=== PATIENT | male | born 1940 | race Caucasian/White ===

== ENCOUNTER 2018-11-02 10:29 | Outpatient (CLI) | payer MEDICARE, OTHER ==
--- NOTE | 2018-11-02 11:54 | MRI ---
MRI LUMBAR SPINE: Date: 11/02/2018 COMPARISON: None. HISTORY: Low back pain and right-sided hip pain, radiculopathy, spinal stenosis. TECHNIQUE: Multiplanar multisequence MR imaging of the lumbar spine obtained without contrast. FINDINGS: The sagittal STIR imaging demonstrates no focal area of osseous marrow edema. On the basis of 5 lumbar type vertebral bodies, the conus medullaris terminates at the T12-L1 level. T12-L1: There is disc space narrowing and disc desiccation with mild bilateral facet hypertrophy. No significant central canal or neural foraminal stenosis. L1-2: There is disc space narrowing and disc desiccation with mild bilateral facet hypertrophy. No si gnificant central canal or neural foraminal stenosis. L2-3: There is disc space narrowing and disc desiccation with mild disc bulge. Mild bilateral facet h ypertrophy. There is anterior osteophyte formation. No significant central canal or neural foraminal stenosis. L3-4: There is disc space narrowing and disc desiccation with minimal disc bulge and anterior osteoph yte formation. Mild bilateral facet hypertrophy. No significant central canal or neural foraminal stenosis. L4-5: There is disc space narrowing and disc desiccation. There is bilateral facet hypertrophy. There is a small foraminal disc protrusion on the left abutting the exiting L4 nerve root. Mild bilateral neural foraminal stenosis. No significant central canal stenosis. L5-S1: Disc space narrowing disc desiccation and vacuum disc formation. There is no significant centr al canal or neural foraminal stenosis. Review of the retroperitoneal structures demonstrates lobulated T2 hyperintensity within the renal hi la bilaterally suggesting extrarenal pelves and/or parapelvic cysts. IMPRESSION: Multilevel degenerative change within the lumbar spine as detailed above. Transcribed Date/Time: 11/02/2018 11:58 AM
== END 2018-11-02 10:30 | disposition home or self-care (01) ==
LOC: TBSIIMAG 10:29
PROVIDERS: ATTEND Orthopaedic Surgery
DX: M48.061 Spinal stenosis, lumbar region without neurogenic claudication (principal); M47.816 Spondylosis without myelopathy or radiculopathy, lumbar region
CPT/HCPCS: 72148

== ENCOUNTER 2019-03-22 11:50 | Outpatient (CLI) | payer MEDICARE ==
--- NOTE | 2019-03-22 13:13 | CT ---
CT pulmonary lung scan without IV contrast INDICATION: Lung cancer screening protocol; 60 year plus smoking history; quit 2 years agopersonal hi story of smoking COMPARISON: None FINDINGS: LUNGS: Nodules\mass: No suspicious nodule demonstrated. Emphysema: Mild centrilobular emphysema Additional findings: There are coronary artery and thoracic aortic calcifications Mediastinum: No lymphadenopathy. Upper abdomen: There is prominence of the superior and mid left renal pelvicalyceal system which may reflect a UPJ obstruction or multiple peripelvic cyst. This is incompletely characterized. There is a calcified granuloma within the spleen. Osseous structures: No acute abnormality.. IMPRESSION: Lung-RADS Category 1: Negative- Continue annual screening with LDCT in 12 months. Category S: Coronary artery and thoracic aortic calcifications, centrilobular emphysema. Prominence o f the left renal collecting system may reflect a chronic UPJ obstruction or multiple peripelvic cysts. Follow-up renal ultrasound is recommended. Category C: Not applicable.
== END 2019-03-22 11:51 | disposition home or self-care (01) ==
LOC: CT 11:50
PROVIDERS: ATTEND Family Medicine
DX: Z87.891 Personal history of nicotine dependence (principal); I25.10 Atherosclerotic heart disease of native coronary artery without angina pectoris; I70.0 Atherosclerosis of aorta; J43.9 Emphysema, unspecified
CPT/HCPCS: G0297

== ENCOUNTER 2019-07-23 17:40 | Inpatient (IN) | payer MEDICARE ==
[2019-07-23 18:55] LABS: CKMB 3.4 ng/mL (0-6.6)
[2019-07-23] MEDS ORDERED: Senokot S 8.6-50 MG TAB PO PRN (20:20)
[2019-07-23] MEDS ORDERED: Acetaminophen 325 MG TAB PO PRN (20:20)
[2019-07-23 20:37] VITALS: BMI 22.5
[2019-07-23] MEDS ORDERED: Sodium Chloride 0.9% 1,000 ML IV SCH (21:00)
[2019-07-23 21:36] LABS: Troponin I 0.835 ng/mL (< 0.028)
[2019-07-23] MEDS: Enoxaparin Sodium 80 MG/0.8 ML SYRINGE SC SCH (21:49)
[2019-07-23] MEDS: Famotidine 20 MG TAB PO SCH (21:50)
--- NOTE | 2019-07-23 22:25 | HP ---
CHIEF COMPLAINT: Weakness. HISTORY OF PRESENT ILLNESS: Mr. Crystal is a very pleasant 78-year-old man, who was transferred to the emergency room at [facility] from [facility] in [place]. He was evaluated there for weakness, which he reports began last night. He reports that he got up to use the restroom, felt overall very weak and fell multiple times on the way to and from the bathroom. He denies any chest pain, any dyspnea, nausea, vomiting, abdominal pain, or any pain. When this occurred, denies hitting his head when he fell. Reports that basically his legs buckled and he was having a hard time. He is able to get up but really had to pull himself up with his upper body. He reports that his works as a nurse and works overnight when she got home this morning. She suggested he go to the emergency room and get checked out. While there, he was evaluated and his initial troponin was 0.47 and then repeat troponin was higher at 0.64. He reports that he sees Dr. Zambrano as a personnel adviser about once a year and he has not seen her in, he thinks about 10 months. He denies history of any chest pain, cardiac workup, any surgeries. Does have a heart murmur and is being treated for hypertension. Denies any heart stents, history of GA or stroke. He has a history of smoking and does currently vape. EKG in the emergency room shows normal sinus rhythm, beats per minute 64, complete right bundle branch block, ST depression in lateral leads. T-waves are normal. The patient was given aspirin and Lovenox in [place] and then sent here for evaluation and admission. He will be admitted to telemetry for further workup. REVIEW OF SYSTEMS: The patient reports weakness primarily in his legs. He denies any other symptoms. Denies any chest pain, shortness of breath, abdominal pain, nausea, vomiting, or diarrhea. All systems reviewed with him and negative unless mentioned above or in the HPI. PAST MEDICAL HISTORY: Pertinent for heart murmur diagnosed in 2016, hypertension treated with medication, history of dementia. FAMILY HISTORY: His mom also has dementia and he is on medications for that. SURGICAL HISTORY: Tonsils and appendix have been removed. KNOWN ALLERGIES: None. CURRENT MEDICATIONS: 1. Finasteride 5 mg p.o. once a day. 2. Lisinopril 10 mg p.o. once a day. 3. Metoprolol 100 mg p.o. once a day. 4. Flomax 0.4 mg p.o. once a day. 5. Xanax 0.5 mg p.r.n. PHYSICAL EXAMINATION: ABDOMEN: Nontender. Bowel sounds are heard. BACK: Normal range of motion. No tenderness. MUSCULOSKELETAL: Upper extremity, normal range of motion. Motor strength is normal. Radial pulses are normal. Lower extremity, normal range of motion. Motor strength is normal. Pedal pulses are normal. NEUROLOGIC: The patient is oriented to person, place, and time. Speech is normal. SKIN: Warm, dry, and normal in color. LABORATORY DATA: We will trend troponins, order echocardiogram for in the morning, ask Dr. May to consult. Aspirin was given today, we will continue this daily. Lovenox 1 mg/kg b.i.d. Fasting lipids, TSH. ASSESSMENT: 1. History of hypertension. We will restart home medications once reconciled. 2. Ask PT/OT to help us evaluate. 3. Syncope, see please #1. 4. Gastrointestinal prophylaxis started. Lovenox for deep venous thrombosis prophylaxis. 5. Labs will be repeated in the morning. 6. Case discussed with Dr. Sun, who agrees with plan. 7. Hospital course dependent on clinical findings. Job ID: [id number]
[2019-07-24 01:10] LABS: Critical Call Chem Troponin I RESULT DECREASING; Troponin I 0.763 ng/mL (< 0.028)
[2019-07-24 04:47] LABS: #Eosinphils 0.7 thou/uL (0.0-0.7); #Lymphocytes 1.7 thou/uL (1.20-3.40); #Monocytes 0.4 thou/uL (0.11-0.59); #Neutrophils 5.7 thou/uL (1.40-6.50); %Basophils 0.5 % (0.0-1.0); %Eosinophils 7.7 % (0.0-10.0); %Lymphocytes 20.4 % (21.0-51.0); %Monocytes 5.1 % (0.0-10.0); %Neutrophils 66.3 % (42.0-75.0); Hemoglobin 12.2 g/dL (14.0-18.0); Mean Corpuscular HGB CONC 32.9 g/dL (32.0-36.0); Mean Corpuscular Volume 91.1 fL (78.0-98.0); Mean Platelet Volume 7.7 fL (7.4-10.4); Platelet Count 172 thou/uL (130-400); RBC Distribution Width 12.2 % (11.5-14.5); Red Blood Cell (RBC) Count 4.08 mill/uL (4.70-6.10); White Blood Cell (WBC) Count 8.5 thou/uL (4.8-10.8)
[2019-07-24 05:06] LABS: ALT (SGPT) 10 U/L (8-55); AST (SGOT) 19 U/L (5-34); Albumin 3.3 g/dL (3.4-4.8); Alkaline Phosphatase 66 U/L (40-110); Anion Gap 6 mmol/L (10-20); BUN (Urea Nitrogen) 12 mg/dL (8.4-25.7); Calc. Creatinine Clearance 80 mL/min (70-130); Calcium 8.2 mg/dL (7.8-10.44); Carbon Dioxide 28 mmol/L (23-31); Chloride 109 mmol/L (98-107); Estimated GFR-MDRD Greater than 90; Globulin 2.2 g/dL (2.4-3.5); Glucose 107 mg/dL (83-110); Potassium 3.1 mmol/L (3.5-5.1); Protein, Total 5.5 g/dL (5.8-8.1); Sodium 140 mmol/L (136-145)
[2019-07-24 07:08] LABS: Triglycerides 44 mg/dL (Less than 150)
[2019-07-24 07:13] LABS: Cardiac Risk 2.6 (Less than 4.5); Cholesterol 107 mg/dl (< 200 Desired); HDL Cholesterol 41 mg/dL (>60 Neg Risk); LDL Cholesterol, Calculated 57 mg/dL
[2019-07-24] MEDS: Aspirin 325 mg Enteric Coated Tablet PO SCH (10:13)
[2019-07-24] MEDS: Famotidine 20 MG TAB PO SCH ×2 (10:13→21:40)
[2019-07-24] MEDS: Enoxaparin Sodium 80 MG/0.8 ML SYRINGE SC SCH (10:14)
[2019-07-24] MEDS ORDERED: Ubidecarenone 50 MG CAP PO SCH (12:15)
--- NOTE | 2019-07-24 13:06 | PDOC.HOSPP ---
- Subjective Encounter Date: 07/24/19 Encounter Time: 10:40 Subjective: no sob or chest pain got his echo done now - Objective Vital Signs & Weight: Vital Signs (12 hours) Temp Pulse Pulse Pulse Resp BP BP 07/24/19 11:09 98.7 F 76 17 07/24/19 09:25 72 75 171/77 H 176/73 H 07/24/19 07:44 97.9 F 74 18 07/24/19 04:00 98.2 F 72 16 BP Pulse Ox 07/24/19 11:09 172/79 H 95 07/24/19 09:25 07/24/19 07:44 146/68 H 97 07/24/19 04:00 151/66 H 95 Weight Weight 156 lb 14.4 oz I&O: 07/23/19 07/24/19 07/25/19 06:59 06:59 06:59 Intake Total 690 Balance 690 Result Diagrams: 07/24/19 04:26 07/24/19 04:26 Hospitalist ROS - Medication Medications: Active Medications Generic Name Dose Route Start Last Admin Trade Name Sergey PRN Reason Stop Dose Admin Aspirin 325 mg 07/24/19 09:00 07/24/19 10:13 Ecotrin PO 325 mg DAILY PEDRO Administration Coenzyme Q10 200 mg 07/24/19 12:15 07/24/19 12:26 Coenzyme Q10 PO 07/24/19 14:15 200 mg NOW PEDRO Administration Enoxaparin Sodium 70 mg 07/23/19 21:00 07/24/19 10:14 Lovenox SC 70 mg 0900,2100 PEDRO Administration Famotidine 20 mg 07/23/19 21:00 07/24/19 10:13 Pepcid PO 20 mg BID PEDRO Administration Sodium Chloride 1,000 mls @ 50 mls/hr 07/23/19 21:00 07/23/19 21:49 Normal Saline 0.9% IV 07/24/19 16:59 1,000 mls .Q20H PEDRO Administration - Exam General Appearance: awake alert Eye: PERRL, anicteric sclera ENT: no oropharyngeal lesions, moist mucosa Neck: supple, no JVD Heart: RRR, murmur present Respiratory: no wheezes, no rales Gastrointestinal: soft, non-tender, non-distended, normal bowel sounds Extremities: no cyanosis, no edema Neurological: cranial nerve grossly intact, no focal deficits Hosp A/P (1) Generalized weakness Code(s): R53.1 - WEAKNESS Status: Acute (2) Falls Code(s): W19.XXXA - UNSPECIFIED FALL, INITIAL ENCOUNTER Status: Acute (3) Syncope Code(s): R55 - SYNCOPE AND COLLAPSE Status: Acute (4) Aortic stenosis Code(s): I35.0 - NONRHEUMATIC AORTIC (VALVE) STENOSIS Status: Chronic Qualifiers: Cardiac valve disease etiology: nonrheumatic Qualified Code(s): I35.0 - Nonrheumatic aortic (valve) stenosis (5) HTN (hypertension) Code(s): I10 - ESSENTIAL (PRIMARY) HYPERTENSION Status: Chronic Qualifiers: Hypertension type: essential hypertension Qualified Code(s): I10 - Essential (primary) hypertension (6) Dementia Code(s): F03.90 - UNSPECIFIED DEMENTIA WITHOUT BEHAVIORAL DISTURBANCE Status: Chronic Qualifiers: Dementia type: unspecified type (7) BPH (benign prostatic hyperplasia) Code(s): N40.0 - BENIGN PROSTATIC HYPERPLASIA WITHOUT LOWER URINRY TRACT SYMP Status: Chronic Qualifiers: Lower urinary tract symptom presence: symptoms absent Qualified Code(s): N40.0 - Benign prostatic hyperplasia without lower urinary tract symptoms - Plan is on full does lovenox, aspirin and gentle iv hydration oral diet, await echo results and cardiac opinion hemostable will add low dose lopressor
[2019-07-24 13:32] LABS: CKMB 2.3 ng/mL (0-6.6)
--- NOTE | 2019-07-24 17:33 | CON ---
DATE OF CONSULTATION: HISTORY: Portillo Crystal is a 78-year-old white male who has been followed by Dr. Zambrano. 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 Echo at that time revealed ejection fraction of 60% to 65% with mild aortic sclerosis, moderate aortic stenosis with peak gradient of 48 mm, mean gradient 32 mm, trivial mitral regurgitation, mild tricuspid regurgitation, mild pulmonic regurgitation, and evidence for diastolic dysfunction. He continues to deny any chest discomfort or shortness of breath. He denies any episodes of syncope or lightheadedness. 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 He apparently fell 2 or 3 times. He states that his thigh muscles hurt so bad and were so weak that he could not even stand. 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 He was found to have elevated troponin I and was transferred from [place] to here for further evaluation. He continues to complain of pain in his muscles as well as palpable tenderness. PAST MEDICAL HISTORY: 1. Mild aortic stenosis. 2. Hypertension. 3. Hypercholesterolemia. MEDICATIONS: 1. Prevagen one tablet daily. 2. Turmeric 500 mg daily. 3. Uroxatral 10 mg daily. 4. Xanax 0.5 nightly. 5. Atorvastatin 20 daily. 6. Finasteride 5 mg daily. 7. Fish oil daily. 8. Ginkgo Biloba daily. 9. Iron 65 mg b.i.d. 10. Lisinopril 20 mg one-half tablet daily. 11. Metoprolol 25 b.i.d. 12. Flomax 0.4 daily. 13. CoQ10 of 200 mg daily. ALLERGIES: NONE. OPERATIONS: 1. Tonsillectomy. 2. Appendectomy. SOCIAL HISTORY: He does not smoke. REVIEW OF SYSTEMS: Otherwise unremarkable. PHYSICAL EXAMINATION: VITAL SIGNS: Blood pressure 172/79 and pulse of 96. HEENT: PERRL. NECK: Supple. CHEST: Clear. CARDIAC: S1 and S2 are normal without any S3 or S4. There is a 2/6 to 3/6 systolic ejection murmur. ABDOMEN: Normal bowel sounds without tenderness or organomegaly. EXTREMITIES: No clubbing, cyanosis, or edema. NEUROLOGIC: Grossly intact. SKIN: Warm and dry. MUSCULOSKELETAL: Palpable thigh muscle tenderness. LABORATORY DATA: EKG revealed normal sinus rhythm with right bundle-branch block. Hemoglobin 12.2, hematocrit 37.2, white count 8500, and platelets 172,000. Sodium 140, potassium 3.1, chloride 109, carbon dioxide 28, BUN 12, and creatinine 0.77. Troponin I 0.858. CK-MB is normal. Cholesterol 107, triglycerides 44, HDL 41, and LDL 57. TSH is normal. IMPRESSION: 1. Njx-VH-ncdjiulpu myocardial infarction, probably type 2. The patient denies really any cardiac symptoms, did not have any chest pains or shortness of breath. 2. Lower extremity muscle pain and weakness with multiple falls related to this. 3. Hypertension. 4. History of aortic stenosis. 5. Hypercholesterolemia. PLAN: Another CK will be obtained to rule out rhabdomyolysis. His statin medication will be held at this time and some of this may be related to muscle pain associated with statins; however, this is somewhat of an unusual presentation with this acute onset. He will be continued on CoQ10. We will follow the patient with you. Job ID: [id number] [facility]
[2019-07-24] MEDS: Metoprolol Tartrate 25 MG TAB PO SCH (21:40)
[2019-07-24] MEDS: Ubidecarenone 50 MG CAP PO SCH (21:40)
[2019-07-25 03:53] VITALS: TEMP 97.8
[2019-07-25] MEDS ORDERED: Tamsulosin HCl 0.4 MG CAP PO SCH (09:00)
[2019-07-25] MEDS ORDERED: Alfuzosin 10 MG TABDR...ER PO SCH (09:00)
[2019-07-25] MEDS ORDERED: Enoxaparin Sodium 40 MG/0.4 ML SYRINGE SC SCH (09:00)
[2019-07-25] MEDS ORDERED: Lisinopril 5 MG TAB PO SCH (09:00)
[2019-07-25] MEDS ORDERED: Finasteride 5 MG TAB PO SCH (09:00)
[2019-07-25] MEDS ORDERED: Fish Oil 1,000 MG CAP PO SCH (09:00)
[2019-07-25 09:10] LABS: Anion Gap 8 mmol/L (10-20); BUN (Urea Nitrogen) 7 mg/dL (8.4-25.7); Calc. Creatinine Clearance 80 mL/min (70-130); Carbon Dioxide 30 mmol/L (23-31); Chloride 106 mmol/L (98-107); Estimated GFR-MDRD Greater than 90; Glucose 100 mg/dL (83-110); Magnesium 2.2 mg/dL (1.6-2.6); Potassium 3.7 mmol/L (3.5-5.1); Sodium 140 mmol/L (136-145)
[2019-07-25] MEDS: Famotidine 20 MG TAB PO SCH (09:19)
[2019-07-25] MEDS: Aspirin 325 mg Enteric Coated Tablet PO SCH (09:19)
[2019-07-25] MEDS: Ubidecarenone 50 MG CAP PO SCH (09:19)
[2019-07-25] MEDS: Metoprolol Tartrate 25 MG TAB PO SCH (09:19)
[2019-07-25 10:24] VITALS: BP 163/75
--- NOTE | 2019-07-25 15:50 | DIS ---
DATE OF ADMISSION: 07/23/2019 DATE OF DISCHARGE: 07/25/2019 DISCHARGE DISPOSITION: Home. 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 PROCEDURES DONE DURING HOSPITALIZATION: Echo with 2D Doppler done showed ejection fraction of 60% to 65%. There was moderate aortic stenosis seen. There was diastolic dysfunction. H and H of 12 and 37, platelet count 172, MCV 91. Albumin 3.3. Troponin I peaking up to 0.85. CK-MB 3.4, CK levels 150, and albumin 3.3. Total cholesterol 107, triglycerides 44, LDL 57, and HDL 41. TSH 1.17. Potassium was 3.1 on admission with discharge numbers of 3.7, BUN 7, and creatinine 0.7. Liver enzymes were within normal limits. DISCHARGE MEDICATIONS: 1. Alfuzosin 10 mg p.o. daily. 2. Finasteride 5 mg p.o. daily. 3. Fish oil 1200 mg p.o. daily. 4. Iron 65 mg p.o. twice daily. 5. Lisinopril 5 mg p.o. daily. 6. Metoprolol succinate 25 mg extended release twice daily. 7. Flomax 0.4 mg p.o. daily. 8. Aspirin 81 mg p.o. daily. 9. CoQ10 200 mg p.o. twice daily. ALLERGIES: NO KNOWN DRUG ALLERGIES. INPATIENT CONSULT: Dr. May for Cardiology. DISCHARGE PLAN: The patient to follow up with Dr. Zambrano in 2 weeks. He needs to follow up with Dr. Alyx Lau in 1 week. BRIEF COURSE DURING HOSPITALIZATION: The patient initially got admitted on the with complaints of weakness and fell multiple times in the bathroom. In view of this history, the patient was admitted to telemetry. He has had indeterminate troponin likely type 2 [facility]. He has remained asymptomatic as to chest pain or palpitations or shortness of breath. He has had hypokalemia, which was replaced. Also, his statin was held. He was evaluated by Dr. May for Cardiology. His echo showed normal ejection fraction. The patient has had known history of moderate aortic stenosis and will follow up with Dr. Zambrano in the outpatient setting. The patient likely needs to have a valve replacement and we will await outpatient followup with Dr. Zambrano for the same. He has ambulated with Physical Therapy on the floor. He has not had any further falls here. Home Health with Physical therapy will be arranged via Case Management. Please note, I have seen and examined the patient on the day of discharge. As the patient has improved dramatically during his stay here, he is being discharged home. He is also wanting to go home and not be placed anywhere. Please note, I have seen and examined the patient on the day of discharge. Job ID: [id number]
== END 2019-07-25 11:36 | disposition home health service (06) | DRG 91 ==
LOC: ERS 17:40 → 2NO 18:28
PROVIDERS: ADMIT Internal Medicine; ATTEND Internal Medicine
DX: G72.0 Drug-induced myopathy (principal); I21.A1 Myocardial infarction type 2; R29.6 Repeated falls; I10 Essential (primary) hypertension; F03.90 Unspecified dementia, unspecified severity, without behavioral disturbance, psychotic disturbance, mood disturbance, and anxiety; N40.0 Benign prostatic hyperplasia without lower urinary tract symptoms; E78.00 Pure hypercholesterolemia, unspecified; I08.3 Combined rheumatic disorders of mitral, aortic and tricuspid valves; E78.5 Hyperlipidemia, unspecified; T46.6X5A Adverse effect of antihyperlipidemic and antiarteriosclerotic drugs, initial encounter; W18.39XA Other fall on same level, initial encounter; E87.6 Hypokalemia; Y92.091 Bathroom in other non-institutional residence as the place of occurrence of the external cause; Z87.891 Personal history of nicotine dependence
CPT/HCPCS: 36415; 80048; 80053; 80061; 82550; 82553; 83735; 84443; 84484; 85025; 93005; 93306; J1650

== ENCOUNTER 2019-12-08 07:36 | Outpatient (CLI) | payer MEDICARE, OTHER ==
[2019-12-08 14:06] LABS: Hemoglobin 14.2 g/dL (14.0-18.0); Mean Corpuscular HGB CONC 32.6 g/dL (32.0-36.0); Mean Corpuscular Hemoglobin 30.4 pg (27.0-31.0); Mean Corpuscular Volume 93.4 fL (78.0-98.0); Platelet Count 206 thou/uL (130-400); RBC Distribution Width 12.1 % (11.5-14.5); Red Blood Cell (RBC) Count 4.68 mill/uL (4.70-6.10); White Blood Cell (WBC) Count 6.3 thou/uL (4.8-10.8)
[2019-12-08 14:26] LABS: PTT 31.3 sec (22.9-36.1); Prothrombin Time 12.8 sec (12.0-14.7)
[2019-12-08 14:40] LABS: Anion Gap 12 mmol/L (10-20); BUN (Urea Nitrogen) 12 mg/dL (8.4-25.7); Calc. Creatinine Clearance 0 mL/min (70-130); Calcium 9.1 mg/dL (7.8-10.44); Carbon Dioxide 26 mmol/L (23-31); Chloride 105 mmol/L (98-107); Estimated GFR-MDRD Greater than 90; Glucose 84 mg/dL (83-110); Potassium 4.5 mmol/L (3.5-5.1); Sodium 138 mmol/L (136-145)
[2019-12-08 14:41] LABS: Bacteria/HPF None Seen HPF (None Seen); Bilirubin Negative (Negative); Blood, Urine Negative (Negative); Clarity Clear (Clear); Glucose, Urine (Dipstick) Normal (Negative); Ketone, Urine Negative (Negative); Leukocyte Negative Leu/uL (Negative); Nitrite Negative (Negative); Protein, Urine (Dipstick) Negative (Neg-Trace); RBC/HPF 0-3 HPF (0-3); Specific Gravity, Urine 1.013 (1.002-1.036); Squamous Epithelial 0-3 HPF (0-3); Urobilinogen Normal mg/dL (Less than 2); WBC/HPF 0-3 HPF (0-3)
[2019-12-09 13:15] LABS: SARS-CoV-2 MS2 Positive; SARS-CoV-2 N Gene Positive; SARS-CoV-2 S Gene Positive; SARS-CoV-2 by NAA DETECTED (NotDetected); SARS-CoV-2 orf1ab Positive
== END 2019-12-08 07:37 | disposition home or self-care (01) ==
LOC: LABBT 07:36
PROVIDERS: ATTEND Urology
DX: U07.1 COVID-19 (principal); Z01.812 Encounter for preprocedural laboratory examination; N40.0 Benign prostatic hyperplasia without lower urinary tract symptoms
CPT/HCPCS: 80048; 81001; 85027; 85610; 85730; 86850; 86900; 86901; 87086; U0003; 87635

== ENCOUNTER 2019-12-13 06:39 | Observation (INO) | payer MEDICARE ==
[2019-12-13] MEDS ORDERED: Levofloxacin 500 mg/D5W 100 ml Premix Bag ONE (07:19)
[2019-12-13] MEDS ORDERED: Fentanyl 100 MCG/2 ML VIAL ONE ×2 (08:59→11:39)
[2019-12-13] MEDS ORDERED: Ondansetron HCl/PF 4 MG/2 ML Vial IVP PRN (10:10)
[2019-12-13] MEDS ORDERED: Promethazine HCl 25 MG/ML VIAL SLOW IVP PRN (10:10)
[2019-12-13] MEDS ORDERED: HYDROmorphone 2 MG/ML VIAL SLOW IVP PRN (10:10)
[2019-12-13] MEDS ORDERED: Docusate 100 MG CAP PO PRN (11:02)
[2019-12-13] MEDS ORDERED: hydrALAZINE 20 MG/ML VIAL SLOW IVP PRN ×2 (11:02)
[2019-12-13] MEDS ORDERED: HYDROcodone/Acetaminophen 5/325 mg Tablet PO PRN ×2 (11:02)
[2019-12-13] MEDS ORDERED: Mag-Al 1200 mg/1200 mg/30 ML UDCUP PO PRN (11:02)
[2019-12-13] MEDS ORDERED: Ondansetron PF 4 MG/2 ML Vial IVP PRN (11:02)
[2019-12-13] MEDS ORDERED: Phenazopyridine HCl 97.5 MG TABLET PO PRN (11:02)
[2019-12-13] MEDS ORDERED: Zolpidem Tartrate 5 MG TAB PO PRN (11:02)
[2019-12-13] MEDS ORDERED: diphenhydrAMINE 50 MG/ML VIAL IVP PRN (11:02)
[2019-12-13] MEDS ORDERED: PROPOFOL 200 MG/20 ML VIAL ONE (11:12)
[2019-12-13] MEDS ORDERED: EPHEDRINE 25 MG/5 ML SYRINGE ONE (11:12)
[2019-12-13] MEDS ORDERED: Ondansetron PF 4 MG/2 ML Vial ONE (11:12)
[2019-12-13] MEDS ORDERED: Dexamethasone 20 MG/5 ML VIAL ONE (11:12)
[2019-12-13] MEDS ORDERED: Lidocaine 1% PF 5 ML VIAL ONE (11:12)
[2019-12-13 12:08] LABS: #Eosinphils 0.4 thou/uL (0.0-0.7); #Monocytes 0.2 thou/uL (0.11-0.59); #Neutrophils 5.5 thou/uL (1.40-6.50); %Basophils 0.6 % (0.0-1.0); %Lymphocytes 13.2 % (21.0-51.0); %Monocytes 3.4 % (0.0-10.0); %Neutrophils 76.8 % (42.0-75.0); Hemoglobin 13.2 g/dL (14.0-18.0); Mean Corpuscular HGB CONC 32.9 g/dL (32.0-36.0); Mean Corpuscular Hemoglobin 30.3 pg (27.0-31.0); Mean Corpuscular Volume 92.2 fL (78.0-98.0); Mean Platelet Volume 7.3 fL (7.4-10.4); Platelet Count 170 thou/uL (130-400); RBC Distribution Width 12.2 % (11.5-14.5); Red Blood Cell (RBC) Count 4.35 mill/uL (4.70-6.10); White Blood Cell (WBC) Count 7.2 thou/uL (4.8-10.8)
[2019-12-13 12:28] LABS: Anion Gap 6 mmol/L (10-20); BUN (Urea Nitrogen) 9 mg/dL (8.4-25.7); Calc. Creatinine Clearance 78 mL/min (70-130); Calcium 8.3 mg/dL (7.8-10.44); Carbon Dioxide 28 mmol/L (23-31); Chloride 109 mmol/L (98-107); Estimated GFR-MDRD Greater than 90; Glucose 104 mg/dL (83-110); Potassium 4.1 mmol/L (3.5-5.1); Sodium 139 mmol/L (136-145)
[2019-12-13] MEDS: Sodium Chloride 0.9% 1,000 ML IV SCH ×2 (12:45→20:52)
[2019-12-13 13:18] VITALS: BMI 25.0
[2019-12-13] MEDS: cefTRIAXone\\ROCEPHIN 1 GM in Sodium Chloride 0.9% 100 ML IVPB SCH (13:40)
--- NOTE | 2019-12-13 17:41 | OP ---
DATE OF PROCEDURE: 12/13/2019 PRIMARY CARE PHYSICIAN: Alyx Lau MD PREOPERATIVE DIAGNOSES: 1. A 79-year-old male with history of incomplete emptying. 2. Benign prostatic hyperplasia. 3. History of urinary tract infection. POSTOPERATIVE DIAGNOSES: 1. A 79-year-old male with history of incomplete emptying. 2. Benign prostatic hyperplasia. 3. History of urinary tract infection. PROCEDURES PERFORMED: Cystoscopy, transurethral resection of prostate, transurethral resection of bladder tumor. SURGEON: Jennifer Prado DO ANESTHESIA: General. COMPLICATIONS: None apparent. ESTIMATED BLOOD LOSS: Less than 50 mL. IV FLUIDS: 1100 mL. SPECIMEN: 1. TUR prostate. 2. TUR of incidental bladder tumor(<1cm) INTRAOPERATIVE FINDINGS: 1. Bilobar hyperplasia of the prostate moderately obstructing with diffuse bladder trabeculation. 2. Incidental left lateral bladder tumor about 8 mm, located in the left lateral wall about 1 cm cephalad to the left ureteral orifice, appear superficial, sessile. INDICATIONS FOR PROCEDURE AND HISTORY: Mr. Cyrstal is a 79-year-old male with history of BPH, incomplete emptying, previously followed by Dr. Carver. The patient previously was scheduled for transurethral resection of prostate, declined UroLift as desires to proceed with more definitive surgery. He was deferred due to COVID-19 pandemic and rescheduled for today. Risks and complications of the TURP were discussed with the patient and family in detail including, but not limited to: Bleeding, pain, infection, injury to adjacent organs, urosepsis, bladder neck contracture, clot retention, stricture formation, secondary procedure, bladder, ureteral, and kidney injury was reviewed. All questions answered to their satisfaction and desired to proceed. DESCRIPTION OF PROCEDURE: After an informed consent was signed, the patient was taken to the operating room, placed in a dorsal lithotomy position with the genital area prepped and draped in the usual surgical sterile fashion. A 21-Tajik cystoscope was utilized for cystoscopy, which demonstrated bilobar hyperplasia of the prostate with [id number] obstruction with no evidence of intravesical median lobe. The ureteral orifices were identified about 3 to 4 mm proximal to the bladder neck with diffuse bladder trabeculation consistent with chronic outlet obstruction. At this time, we surveyed the ureter, which demonstrated no evidence of bladder stones. 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 This was located at the left lateral wall about 1 cm cephalad to the left ureteral. No other lesions were seen. At this time, we transitioned to a 26-Tajik resectoscope with a visual obturator, Olympus scope. This was passed to the level of the bladder and we performed a standard transurethral resection of the prostate using in a classic Nurys fashion. We took down the lateral lobes, creating a nice channel, obstructive component had resolved, and good hemostasis was obtained. Using an Ellik evacuator, all prostatic chips were evacuated. At this time as we completed our transurethral resection of prostate, we addressed the bladder tumor. Resection of the bladder tumor demonstrated complete removal and appeared to be superficial with no muscle involvement. We were able to see some perivesical fat as it was resected with the bladder loop. I did not take deep bites as it courses the intramural portion, and a complete resection was noted. This was sent separately. As the tumor was quite small, specimen was difficult to visualize. However, we did siphon and sent it appropriately. Good hemostasis of the tumor bed was obtained and we again looked at the prostatic urethra at the resection site, obtaining further hemostasis as needed. No active bleeding was appreciated. A 22-Tajik 30 mL three-way Gutierrez catheter was passed without difficulty. A 30 mL insufflated and CBI initiated with light rate demonstrating clear output. He tolerated the procedure well and transported to the recovery room in stable condition. Job ID: [id number] [facility]
[2019-12-13] MEDS: Famotidine/PF 20 mg/2ml Vial SLOW IVP SCH (20:52)
[2019-12-13] MEDS ORDERED: ALPRAZolam 0.5 MG TAB PO SCH (21:00)
[2019-12-14 05:09] LABS: #Lymphocytes 1.5 thou/uL (1.20-3.40); #Monocytes 0.7 thou/uL (0.11-0.59); #Neutrophils 6.6 thou/uL (1.40-6.50); %Basophils 0.3 % (0.0-1.0); %Eosinophils 0.5 % (0.0-10.0); %Lymphocytes 16.5 % (21.0-51.0); %Neutrophils 74.7 % (42.0-75.0); Hemoglobin 12.3 g/dL (14.0-18.0); Mean Corpuscular HGB CONC 32.9 g/dL (32.0-36.0); Mean Corpuscular Hemoglobin 30.3 pg (27.0-31.0); Mean Corpuscular Volume 92.1 fL (78.0-98.0); Mean Platelet Volume 7.7 fL (7.4-10.4); Platelet Count 162 thou/uL (130-400); Red Blood Cell (RBC) Count 4.06 mill/uL (4.70-6.10); White Blood Cell (WBC) Count 8.8 thou/uL (4.8-10.8)
[2019-12-14 05:28] LABS: Anion Gap 9 mmol/L (10-20); BUN (Urea Nitrogen) 10 mg/dL (8.4-25.7); Calc. Creatinine Clearance 84 mL/min (70-130); Calcium 8.1 mg/dL (7.8-10.44); Carbon Dioxide 23 mmol/L (23-31); Chloride 110 mmol/L (98-107); Estimated GFR-MDRD Greater than 90; Glucose 110 mg/dL (83-110); Potassium 4.1 mmol/L (3.5-5.1); Sodium 138 mmol/L (136-145)
[2019-12-14] MEDS: Famotidine/PF 20 mg/2ml Vial SLOW IVP SCH (07:56)
[2019-12-14 07:59] VITALS: BP 127/61
[2019-12-14 08:08] VITALS: TEMP 97.6
--- NOTE | 2019-12-14 08:20 | DIS ---
DATE OF ADMISSION: 12/13/2019 DATE OF DISCHARGE: 12/14/2019 ADMITTING DIAGNOSES: 1. Benign prostatic hypertrophy. 2. History of recurrent urinary tract infection. 3. History of incomplete emptying. DISCHARGE DIAGNOSES: 1. Benign prostatic hypertrophy. 2. History of recurrent urinary tract infection. 3. History of incomplete emptying. PROCEDURES: 1. Cystoscopy. 2. Transurethral resection of prostate. 3. TURBT of incidental small bladder tumor. CONDITION: Stable. DISPOSITION: Home with excellent home care as his is an RN. The patient was discharged with indwelling urethral Gutierrez catheter to gravity bag per the patient's 's request, declined leg bag. ACTIVITY: No heavy lifting, strenuous activity. DISCHARGE MEDICATIONS: Resume all his medications except his baby aspirin. His postop medications including ciprofloxacin 500 mg one p.o. b.i.d. for 7 days, azo p.r.n., tramadol #30 one to two p.o. q.6 hours p.r.n., Colace 100 mg p.o. b.i.d. p.r.n. sent to the patient's pharmacy at [facility]. BRIEF HOSPITAL COURSE: Mr. Crystal is a pleasant 79-year-old male with known history of BPH, incomplete emptying. He was previously deferred due to COVID-19 pandemic and is scheduled for cysto, TURP. He presented to proceed with TURP, surgery was uneventful. However, cystoscopy demonstrated incidental small papillary bladder tumor in the left lateral wall, which was concomitantly treated. Minimal blood loss was noted. His CBC, chemistry profile are unremarkable. Vital signs are stable. Has minimal discomfort. Given that he had his bladder tumor treated as well, I will leave an indwelling Gutierrez catheter for a few days. The patient's has been informed and will see me later this week for catheter removal. DISPOSITION: Home. FOLLOWUP: followup appointment is December 15 at 10:15 a.m. for voiding trial. Job ID: [id number] [facility]
[2019-12-14] MEDS ORDERED: [UNRECOGNIZED DRUG - OTHER] PO SCH (09:00)
[2019-12-14] MEDS ORDERED: Lisinopril 10 MG TAB PO SCH (09:00)
[2019-12-14] MEDS ORDERED: Finasteride 5 MG TAB PO SCH (09:00)
[2019-12-14] MEDS ORDERED: Ubidecarenone 50 MG CAP PO SCH (09:00)
[2019-12-14] MEDS ORDERED: PREVAGEN PO SCH (09:00)
[2019-12-14] MEDS ORDERED: Tamsulosin HCl 0.4 MG CAP PO SCH ×2 (09:00)
[2019-12-14] MEDS ORDERED: SAW PALMETTO FRUIT 450 MG PO SCH (09:00)
[2019-12-14] MEDS: cefTRIAXone\\ROCEPHIN 1 GM in Sodium Chloride 0.9% 100 ML IVPB SCH (12:02)
== END 2019-12-14 12:20 | disposition home or self-care (01) ==
LOC: SDC 06:39 → SURG B 11:08
PROVIDERS: ADMIT Urology; ATTEND Urology
PROC: 0VT08ZZ Resection of Prostate, Via Natural or Artificial Opening Endoscopic (ICD-10-PCS; principal; 2019-12-13)
PROC: 0T5B8ZZ Destruction of Bladder, Via Natural or Artificial Opening Endoscopic (ICD-10-PCS; 2019-12-13)
DX: N40.1 Benign prostatic hyperplasia with lower urinary tract symptoms (principal); R39.14 Feeling of incomplete bladder emptying; R35.0 Frequency of micturition; N39.0 Urinary tract infection, site not specified; N28.1 Cyst of kidney, acquired; K59.09 Other constipation; I10 Essential (primary) hypertension; E78.5 Hyperlipidemia, unspecified; F03.90 Unspecified dementia, unspecified severity, without behavioral disturbance, psychotic disturbance, mood disturbance, and anxiety; N52.9 Male erectile dysfunction, unspecified; I35.0 Nonrheumatic aortic (valve) stenosis; Z79.82 Long term (current) use of aspirin; Z79.899 Other long term (current) drug therapy; Z87.891 Personal history of nicotine dependence
CPT/HCPCS: 52234; 52601; 80048 ×2; 85025 ×2; 86850; 86900; 86901; 88305; 96361 ×2; 96365; 96375; 96376; G0378 ×2; 36415; J0696; J1100; J1956; J2405; J2704; J3010; J3490; S0028